=== PATIENT | female | born 1970 | race Caucasian/White ===

== ENCOUNTER 2017-01-17 19:40 | Emergency (ER) | payer OTHER ==
[2017-01-17 19:49] VITALS: BP 134/92; PULSE 78; TEMP 98.6; BMI 26.2
[2017-01-17] MEDS ORDERED: DIPHTH,PERTUSS(ACELL),TET VAC 0.5 ML VIAL IM ONE (20:21)
--- NOTE | 2017-01-17 20:21 | PDOC ---
History of Present Illness - General Chief Complaint: Injury Stated Complaint: LACERATION LEFT INDEX FINGER Time Seen by Provider: 01/17/17 19:50 - History of Present Illness Initial Comments: 01/17/17 20:18 "The patient is a 46 year old female with no significant past medical history who presents to the ED with finger injury today. The patient reports she was cleaning out her immersion rn peritoneal dialysis when her left 4th digit got caught in the blade. She states there was bleeding when she first injured her finger but notes it has now stopped completely. Denies any injury to any other part of her hand or body. Denies any other symptoms. " Past History - Past Medical History Allergies/Adverse Reactions: Allergies Allergy/AdvReac Type Severity Reaction Status Date / Time procaine HCl [From Novocain] Allergy Hives Verified 01/17/17 19:41 prochlorperazine edisylate AdvReac Verified 01/17/17 19:41 [From Compazine] prochlorperazine maleate AdvReac Verified 01/17/17 19:41 [From Compazine] Home Medications: Ambulatory Orders Fluoxetine HCl [Prozac] 10 mg PO HS #0 02/07/14 Norethindrone-E.estradiol-Iron [Lo Loestrin Fe 1-10 Tablet] 1 tab PO DAILY #0 02/07/14 Anemia: Yes Thyroid Disease: No - Surgical History Orthopedic Surgery: Yes - Psycho/Social/Smoking Cessation Hx Anxiety: No Suicidal Ideation: No Smoking History: Never smoked Have you smoked in the past 12 months: No Information on smoking cessation initiated: No Hx Alcohol Use: Yes Drug/Substance Use Hx: No Substance Use Type: None Hx Substance Use Treatment: No Review of Systems - Review of Systems Comments:: 01/17/17 20:19 "GENERAL/CONSTITUTIONAL: No fever or chills. No weakness. HEAD, EYES, EARS, NOSE AND THROAT: No change in vision. No ear pain or discharge. No sore throat. CARDIOVASCULAR: No chest pain or shortness of breath. RESPIRATORY: No cough, wheezing, or hemoptysis. GASTROINTESTINAL: No nausea, vomiting, diarrhea or constipation. GENITOURINARY: No dysuria, frequency, or change in urination. MUSCULOSKELETAL: No joint or muscle swelling or pain. No neck or back pain. SKIN: + finger laceration. no rash NEUROLOGIC: No headache, vertigo, loss of consciousness, or change in strength/ sensation. ENDOCRINE: No increased thirst. No abnormal weight change. HEMATOLOGIC/LYMPHATIC: No anemia, easy bleeding, or history of blood clots. ALLERGIC/IMMUNOLOGIC: No hives or skin allergy." *Physical Exam - Vital Signs Last Vital Signs Temp Pulse Resp BP Pulse Ox 98.6 F 78 16 134/92 100 01/17/17 19:45 01/17/17 19:45 01/17/17 19:45 01/17/17 19:45 01/17/17 19:45 - Physical Exam Comments: 01/17/17 20:19 "GENERAL: Awake, alert, and fully oriented, in no acute distress HEAD: No signs of trauma EYES: PERRLA, EOMI, sclera anicteric, conjunctiva clear ENT: Auricles normal inspection, hearing grossly normal, nares patent, oropharynx clear without exudates. Moist mucosa NECK: Normal ROM, supple, no lymphadenopathy, JVD, or masses LUNGS: Breath sounds equal, clear to auscultation bilaterally. No wheezes, and no crackles HEART: Regular rate and rhythm, normal S1 and S2, no murmurs, rubs or gallops ABDOMEN: Soft, nontender, normoactive bowel sounds. No guarding, no rebound. No masses EXTREMITIES: Normal range of motion, no edema. No clubbing or cyanosis. No cords, erythema, or tenderness NEUROLOGICAL: Cranial nerves II through XII grossly intact. Normal speech, normal gait SKIN:+ left 4th digit with 1 cm superficial laceration to palmar tip with no involvement of nail bed, flexor and extensor tendons are intact, finger is neurovascularly intact, no active bleeding. . " Medical Decision Making - Medical Decision Making 01/17/17 20:20 46 F with small superficial finger laceration. No nailbed involvement. Neurovascularly intact with no flexor or extensor tendon injury. - Irrigation - Possible sutures - Tdap 01/17/17 20:36 Wound irrigated with betadine and saline solution. Laceration is superficial, not requiring any sutures. Tdap administered. Stable for DC. *DC/Admit/Observation/Transfer Diagnosis at time of Disposition: Laceration - Discharge Dispostion Disposition: HOME Condition at time of disposition: Stable - Patient Instructions Printed Discharge Instructions: DI for Minor Laceration Additional Instructions: Keep your finger clean and dry for at least 24 hours. Afterwards, you may rinse gently with soap and water. Apply antibiotic ointment twice daily to prevent infection. - Attestations Scribe Attestion: 01/17/17 20:39 I, Dr. Gerry Ambrocio MD, attest that this document has been prepared under my direction and personally reviewed by me in its entirety. I further attest, that it accurately reflects all work, treatment, procedures and medical decision -making performed by me.
== END 2017-01-17 20:50 | disposition home or self-care (01) ==
LOC: FER 19:40
PROC: 3E0234Z Introduction of Serum, Toxoid and Vaccine into Muscle, Percutaneous Approach (ICD-10-PCS; principal; 2017-01-17)
DX: S61.211A Laceration without foreign body of left index finger without damage to nail, initial encounter (principal); W45.8XXA Other foreign body or object entering through skin, initial encounter; Y93.9 Activity, unspecified; Y92.9 Unspecified place or not applicable; Z88.8 Allergy status to other drugs, medicaments and biological substances; D64.9 Anemia, unspecified
CPT/HCPCS: 99281-25

== ENCOUNTER 2020-05-30 13:17 | Emergency (ER) | payer OTHER | END 2020-05-30 15:31 | disposition home or self-care (01) | LOC: JVIRT 13:17 | DX: Z20.822 Contact with and (suspected) exposure to COVID-19 (principal) | CPT/HCPCS: C9803; G2012-GT; U0003 ==

== ENCOUNTER 2020-06-05 10:24 | Emergency (ER) | payer OTHER | END 2020-06-05 11:20 | disposition home or self-care (01) | LOC: JVIRT 10:24 | DX: U07.1 COVID-19 (principal); R51.9 Headache, unspecified | CPT/HCPCS: C9803; G2251-GT; Q3014-GT; U0003 ==

== ENCOUNTER 2021-02-11 22:43 | Emergency (ER) | payer OTHER ==
[2021-02-11 22:54] VITALS: BP 134/83; PULSE 77; TEMP 99.4; BMI 26.4
[2021-02-11] MEDS ORDERED: ACETAMINOPHEN 500 MG TABLET (FP) PO ONE (23:39)
[2021-02-11] MEDS ORDERED: ACETAMINOPHEN 500 MG TABLET (FP) ONE (23:50)
== END 2021-02-11 23:57 | disposition home or self-care (01) ==
LOC: FER 22:43
DX: S61.212A Laceration without foreign body of right middle finger without damage to nail, initial encounter (principal); W26.8XXA Contact with other sharp object(s), not elsewhere classified, initial encounter; Y92.9 Unspecified place or not applicable
CPT/HCPCS: 99283-25

== ENCOUNTER 2021-05-23 21:44 | Emergency (ER) | payer OTHER ==
[2021-05-23 22:01] VITALS: BMI 25.2
[2021-05-23] MEDS ORDERED: valACYclovir HCL 1000 MG TABLET PO ONE (22:25)
[2021-05-23] MEDS ORDERED: predniSONE 20 MG TABLET (UD) PO ONE (22:25)
[2021-05-23] MEDS ORDERED: valACYclovir HCL 500 MG TABLET (FP) ONE (22:33)
[2021-05-23] MEDS ORDERED: predniSONE 20 MG TABLET (UD) ONE (22:33)
[2021-05-23 23:05] VITALS: BP 135/67; PULSE 87; TEMP 99.2
[2021-05-27 00:07] LABS: IgG Ab 23 kDa Band Present (.); IgG Ab 28 kDa Band Absent (.)
== END 2021-05-23 23:20 | disposition home or self-care (01) ==
LOC: FER 21:44
DX: G51.0 Bell's palsy (principal)
CPT/HCPCS: 36415; 70450-TC; 86618; 99284-25

== ENCOUNTER 2023-05-17 12:10 | Emergency (ER) | payer OTHER ==
[2023-05-17 12:21] VITALS: BP 150/87; PULSE 84; RESP 17; TEMP 98; BMI 26.9
== END 2023-05-17 13:09 | disposition home or self-care (01) ==
LOC: FER 12:10
DX: M25.532 Pain in left wrist (principal); S63.502A Unspecified sprain of left wrist, initial encounter; W18.39XA Other fall on same level, initial encounter; Y92.009 Unspecified place in unspecified non-institutional (private) residence as the place of occurrence of the external cause
CPT/HCPCS: 73110-TC-LT-FY; 73130-TC-LT-FY; 99283-25